=== PATIENT | female | born 1970 | race Caucasian/White ===

== ENCOUNTER 2017-05-01 15:29 | Outpatient (CLI) | payer OTHER ==
[~2017-05-01 15:29] MED LIST: CLARITIN-D 121 EACH PO; HYDROXYCHLOROQ200 MG; IBUPROFEN800 MG PO; PLAQUENIL; PROSAC; PROZAC20 MG; TUSSI PRES-B L120 M1 PO; ZITHROMAX TRI-500 MG PO
== END 2017-05-01 15:52 | disposition home or self-care (01) ==
LOC: RAD 15:29
DX: M06.09 Rheumatoid arthritis without rheumatoid factor, multiple sites (principal)

== ENCOUNTER 2017-06-20 12:54 | Emergency (ER) | payer OTHER ==
[~2017-06-20] VITALS: Ht 152.4 cm; Wt 51.7 kg
== END 2017-06-20 18:35 | disposition home or self-care (01) ==
LOC: ER 12:54
DX: M25.552 Pain in left hip (principal); R10.32 Left lower quadrant pain

== ENCOUNTER 2017-12-13 09:48 | Emergency (ER) | payer OTHER ==
[~2017-12-13] VITALS: Ht 149.9 cm; Wt 53.1 kg
[2017-12-13] MEDS ORDERED: PROZAC20 MG PO (10:00)
[2017-12-13] MEDS ORDERED: HYDROXYCHLOROQ200 MG PO (10:01)
[2017-12-13] MEDS ORDERED: NORFLEX100MG PO (11:59)
[2017-12-13] MEDS ORDERED: KETO10TA2 PO (11:59)
[2017-12-13] MEDS ORDERED: VOLTAREN100 GM TOP (12:03)
== END 2017-12-13 12:17 | disposition home or self-care (01) ==
LOC: ER 09:48
DX: M54.5 Low back pain (principal)

== ENCOUNTER 2018-02-09 12:33 | Outpatient (CLI) | payer OTHER ==
[~2018-02-09 12:33] MED LIST changes: +HYDROXYCHLOROQ200 MG PO; +KETO10TA2 PO; +NORFLEX100MG PO; +PROZAC20 MG PO; +VOLTAREN100 GM TOP
== END 2018-02-09 12:38 | disposition home or self-care (01) ==
LOC: MAMO-SONO 12:33
DX: Z12.31 Encounter for screening mammogram for malignant neoplasm of breast (principal); N60.11 Diffuse cystic mastopathy of right breast; N60.12 Diffuse cystic mastopathy of left breast

== ENCOUNTER 2019-01-11 13:55 | Outpatient (CLI) | payer OTHER | END 2019-01-11 14:12 | disposition home or self-care (01) | LOC: SONOGRAMA 13:55 | DX: D50.8 Other iron deficiency anemias (principal); M06.89 Other specified rheumatoid arthritis, multiple sites; E03.8 Other specified hypothyroidism; E06.3 Autoimmune thyroiditis ==

== ENCOUNTER 2019-01-24 14:00 | Emergency (ER) | payer OTHER ==
[~2019-01-24] VITALS: Ht 149.9 cm; Wt 52.2 kg
== END 2019-01-24 16:59 | disposition home or self-care (01) ==
LOC: ER 14:00
DX: J40 Bronchitis, not specified as acute or chronic (principal)

== ENCOUNTER 2021-10-01 12:49 | Emergency (ER) | payer OTHER ==
[~2021-10-01] VITALS: Ht 152.4 cm; Wt 51.3 kg
[2021-10-01] MEDS ORDERED: METHOTREXATE2.5 MG PO (13:05)
[2021-10-01] MEDS ORDERED: HYDROQUINONE (13:06)
[2021-10-01] MEDS ORDERED: FOLIC ACID1 MG PO (13:06)
[2021-10-01] MEDS ORDERED: PROZAC20 MG PO (13:07)
== END 2021-10-01 18:13 | disposition home or self-care (01) ==
LOC: ER 12:49
DX: R07.89 Other chest pain (principal)

== ENCOUNTER 2022-01-23 11:47 | Emergency (ER) | payer OTHER ==
[~2022-01-23] VITALS: Ht 172.7 cm; Wt 85.3 kg
[~2022-01-23 11:47] MED LIST changes: +FOLIC ACID1 MG PO; +HYDROQUINONE; +METHOTREXATE2.5 MG PO
[2022-01-23] MEDS ORDERED: ULTRACET PO (17:23)
[2022-01-23] MEDS ORDERED: MOLNUPIRAVIR (200 MG PO (17:25)
== END 2022-01-23 17:52 | disposition home or self-care (01) ==
LOC: ER 11:47
DX: U07.1 COVID-19 (principal); R09.81 Nasal congestion; R05.9 Cough, unspecified; R53.81 Other malaise; R50.9 Fever, unspecified; R51.9 Headache, unspecified; M06.9 Rheumatoid arthritis, unspecified; Z79.811 Long term (current) use of aromatase inhibitors

== ENCOUNTER 2022-01-24 15:30 | Outpatient (CLI) | payer OTHER ==
[~2022-01-24 15:30] MED LIST changes: +MOLNUPIRAVIR (200 MG PO; +ULTRACET PO
== END 2022-01-24 16:20 | disposition home or self-care (01) ==
LOC: ASH CLINIC 15:30
PROVIDERS: ATTEND Emergency Medicine
DX: Z23 Encounter for immunization (principal)

== ENCOUNTER 2022-06-28 20:05 | Emergency (ER) | payer OTHER ==
[~2022-06-28] VITALS: Ht 149.9 cm; Wt 49.4 kg
[2022-06-28] MEDS ORDERED: PLAQUENIL ×2 (20:32→20:34)
[2022-06-28] MEDS ORDERED: METOTREXATE ×2 (20:33→20:34)
[2022-06-28] MEDS ORDERED: PROZAC20 MG (20:34)
== END 2022-06-28 21:31 | disposition home or self-care (01) ==
LOC: ER 20:05
DX: M75.51 Bursitis of right shoulder (principal); Z91.018 Allergy to other foods